=== PATIENT | male | born 1995 | race Caucasian/White ===

== ENCOUNTER → 2021-11-06 | Outpatient (REF) | payer OTHER ==
[2021-11-06 14:28] LABS: SEMEN APPEARANCE OPAQUE (OPAQUE); SEMEN VOLUME 1.5 ml (2.0-5.0)
[2021-11-06 14:29] LABS: SEMEN VISCOSITY LIQUID (LIQUID); WBC CONCENTRATION <=1 M/ml (<=1 M/ml)
== END ==
LOC: M LAB REF 14:09
PROVIDERS: ATTEND Urology
DX: Z98.52 Vasectomy status (principal)